=== PATIENT | female | born 1970 ===

== ENCOUNTER 2019-09-01 12:15 | Emergency (ER) | payer MEDICAID ==
[2019-09-01] MEDS ORDERED: Ketorolac 30 MG/ML SDV IVPUSH ONE (12:19)
[2019-09-01] MEDS ORDERED: Metoclopramide 10 MG/2 ML SDV IVPUSH ONE (12:20)
[2019-09-01] MEDS ORDERED: diphenhydrAMINE 50 MG/ML SDV IVPUSH ONE (12:20)
--- NOTE | 2019-09-01 12:26 | EDM.PDOC ---
ED HPI GENERAL MEDICAL PROBLEM - General Chief Complaint: Headache Stated Complaint: Migraine x7 days Time Seen by Provider: 09/01/19 12:15 Source of Information: Reports: Patient History Limitations: Reports: No Limitations - History of Present Illness INITIAL COMMENTS - FREE TEXT/NARRATIVE: in with c/o migraine saavedra x 7 days, has a hx of same, no change from normal migraine, no cp, pressure or heaviness, no palpitations or irregular heart beat , no calf pain, redness or swelling, no abd pain, has had nausea without vomiting, no unusual neck/back pain or stiffness, no fever or chills, no ear, nose or throat sx Onset: Gradual Duration: Day(s): Location: Reports: Head Quality: Reports: Ache Severity: Moderate Improves with: Reports: None Worsens with: Reports: None Associated Symptoms: Reports: Headaches, Nausea/Vomiting. 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 (see below) (imitrex ) frontal headache Pain Score (Numeric/FACES): 10 - Related Data Allergies Allergy/AdvReac Type Severity Reaction Status Date / Time adhesive Allergy Hives Verified 09/01/19 12:19 aspirin Allergy Hives Verified 09/01/19 12:19 atomoxetine [From Strattera] Allergy Other Verified 09/01/19 12:19 codeine Allergy Hives Verified 09/01/19 12:19 Home Meds: Home Meds LORazepam [Ativan] 1 mg PO BID PRN 09/01/19 [History] SUMAtriptan [Imitrex] 25 mg PO BID PRN 09/01/19 [History] Topiramate [Topamax] 50 mg PO BID 09/01/19 [History] traMADol [Ultram] 50 mg PO Q6H PRN 09/01/19 [History] Past Medical History Neurological History: Reports: Migraines Social & Family History - Family History Cardiac: Reports: Hypertension - Tobacco Use Smoking Status *Q: Former Smoker Used Tobacco, but Quit: Yes Month/Year Tobacco Last Used: 2 years ago - Alcohol Use Alcohol Use History: No - Living Situation & Occupation Living situation: Reports: with Family, Other (seperated) ED ROS GENERAL - Review of Systems Review Of Systems: See Below Constitutional: Reports: No Symptoms. Denies: Fever, Chills HEENT: Reports: No Symptoms. Denies: Sinus Problem Respiratory: Reports: No Symptoms. Denies: Shortness of Breath Cardiovascular: Reports: No Symptoms. Denies: Chest Pain, Lightheadedness, Palpitations, Syncope GI/Abdominal: Reports: Nausea. Denies: Abdominal Pain, Vomiting : Reports: No Symptoms Musculoskeletal: Reports: No Symptoms. Denies: Neck Pain, Back Pain Skin: Reports: No Symptoms Neurological: Reports: Headache. Denies: Confusion, Dizziness, Paresthesia, Trouble Speaking, Difficulty Walking, Weakness, Change in Speech Psychiatric: Reports: No Symptoms - Physical Exam Exam: See Below Exam Limited By: No Limitations General Appearance: Alert, WD/WN, No Apparent Distress Eye Exam: Bilateral Eye: EOMI Ears: Normal External Exam, Normal Canal, Hearing Grossly Normal, Normal TMs Nose: Normal Inspection, Normal Mucosa Throat/Mouth: Normal Inspection, Normal Lips, Normal Oropharynx, Normal Voice, No Airway Compromise Head Exam: Atraumatic, Normocephalic Neck: Normal Inspection, Supple, Non-Tender, Full Range of Motion Respiratory/Chest: No Respiratory Distress, Lungs Clear, Normal Breath Sounds Cardiovascular: Normal Peripheral Pulses, Regular Rate, Rhythm, No Edema, No Murmur GI/Abdominal: Soft, Non-Tender Neuro Exam (Abbreviated): Alert, Oriented, CN II-XII Intact, Normal Cognition, Normal Gait, No Motor/Sensory Deficits, Other (EOMI, no hayes drift, normal finger to nose and finger to finger, normal gait ) Back Exam: Normal Inspection, Full Range of Motion Extremities: Normal Inspection, Normal Range of Motion, Non-Tender, No Pedal Edema, Normal Capillary Refill Psychiatric: Normal Affect, Normal Mood Skin Exam: Warm, Dry, Intact, Normal Color Course - Vital Signs Last Recorded V/S: Last Vital Signs Temp 36.3 C 09/01/19 12:15 Pulse 77 09/01/19 12:15 Resp 14 09/01/19 12:15 BP 135/66 09/01/19 12:22 Pulse Ox 99 09/01/19 12:15 - Orders/Labs/Meds Meds: Medications Discontinued Medications Generic Name Dose Route Start Last Admin Trade Name Freq PRN Reason Stop Dose Admin Diphenhydramine HCl 25 mg 09/01/19 12:20 09/01/19 12:33 Benadryl IVPUSH 09/01/19 12:21 25 mg ONETIME ONE Administration Ketorolac Tromethamine 30 mg 09/01/19 12:19 09/01/19 12:33 Toradol IVPUSH 09/01/19 12:20 30 mg ONETIME ONE Administration Metoclopramide HCl 10 mg 09/01/19 12:20 09/01/19 12:33 Reglan IVPUSH 09/01/19 12:21 10 mg ONETIME ONE Administration Departure - Departure Time of Disposition: 12:53 Disposition: Home, Self-Care 01 Condition: Good Clinical Impression: Migraine - Discharge Information *PRESCRIPTION DRUG MONITORING PROGRAM REVIEWED*: Not Applicable *COPY OF PRESCRIPTION DRUG MONITORING REPORT IN PATIENT CHRISTIN: Not Applicable Instructions: Recurrent Migraine Headache, [id number] Forms: ED Department Discharge Additional Instructions: follow up with your family doctor this week, call in am for an appointment time return to the ER sooner if worse or problems - Problem List & Annotations (1) Migraine SNOMED Code(s): 65561929 Code(s): G43.909 - MIGRAINE, UNSP, NOT INTRACTABLE, WITHOUT STATUS MIGRAINOSUS Status: Acute Priority: Medium - Problem List Review Problem List Initiated/Reviewed/Updated: Yes - Assessment/Plan Plan: as above
== END 2019-09-01 13:08 | disposition home or self-care (01) ==
LOC: CC.ED 12:15
DX: G43.909 Migraine, unspecified, not intractable, without status migrainosus (principal); Z87.891 Personal history of nicotine dependence; Z88.5 Allergy status to narcotic agent; Z88.6 Allergy status to analgesic agent; Z88.8 Allergy status to other drugs, medicaments and biological substances; Z91.048 Other nonmedicinal substance allergy status
CPT/HCPCS: 96374; 96375; 99283; J1200; J1885; J2765